=== PATIENT | female | born 1960 | race African-American/Black ===

== ENCOUNTER 2019-02-19 16:20 | Emergency (ER) | payer MEDICARE, MEDICAID ==
[~2019-02-19] VITALS: Ht 154.9 cm; Wt 54.0 kg
[2019-02-19 16:32] VITALS: BP 137/81
[2019-02-19] MEDS ORDERED: LISI-186 PO (16:35)
[2019-02-19] MEDS ORDERED: FAMOTIDINE 20MG TABLET PO ONE (17:15)
[2019-02-19] MEDS ORDERED: DIPHENHYDRAMINE 50MG/ML VIAL IM ONE (17:15)
[2019-02-19] MEDS ORDERED: PREDNISONE 20MG TABLET PO ONE (17:15)
== END 2019-02-19 18:28 | disposition home or self-care (01) ==
LOC: ER 16:20
DX: T78.40XA Allergy, unspecified, initial encounter (principal); I10 Essential (primary) hypertension; J45.909 Unspecified asthma, uncomplicated; Z88.6 Allergy status to analgesic agent; Z88.0 Allergy status to penicillin; Z98.890 Other specified postprocedural states; Z96.652 Presence of left artificial knee joint; X58.XXXA Exposure to other specified factors, initial encounter
CPT/HCPCS: 96372; 99283; J1200; J7512

== ENCOUNTER 2019-03-03 02:51 | Emergency (ER) | payer MEDICARE, MEDICAID ==
[~2019-03-03] VITALS: Ht 154.9 cm; Wt 56.0 kg
[~2019-03-03 02:51] MED LIST: LISI-186 PO
[2019-03-03] MEDS ORDERED: FAMOTIDINE 20MG TABLET PO ONE (04:00)
[2019-03-03] MEDS ORDERED: DEXAMETHASONE 10 MG/ML VIAL PO ONE (04:00)
[2019-03-03] MEDS ORDERED: DIPHENHYDRAMINE 25MG CAPSULE PO ONE (04:00)
[2019-03-03] MEDS ORDERED: DEXAMETHASONE 4MG TABLET PO SCH (05:00)
[2019-03-03 05:30] VITALS: BP 129/61
== END 2019-03-03 05:00 | disposition home or self-care (01) ==
LOC: ER 03:47
DX: R21 Rash and other nonspecific skin eruption (principal); I10 Essential (primary) hypertension; J45.909 Unspecified asthma, uncomplicated; F12.10 Cannabis abuse, uncomplicated; Z96.659 Presence of unspecified artificial knee joint; Z88.0 Allergy status to penicillin; Z88.6 Allergy status to analgesic agent; Z98.890 Other specified postprocedural states
CPT/HCPCS: 99283; J8540; Q0163

== ENCOUNTER 2019-04-21 03:48 | Inpatient (IN) | payer MEDICARE, MEDICAID ==
[~2019-04-21] VITALS: Ht 154.9 cm; Wt 61.2 kg
[2019-04-21 05:43] LABS: CHLORIDE 107 mEq/L (98-107)
[2019-04-21 05:44] LABS: HEMATOCRIT. 43.9 % (36.0-48.0); HEMOGLOBIN. 15.3 g/dL (12.0-16.0); MEAN CORPUSCULAR HEMOGLOBIN 35.4 pg (28.0-32.0); MEAN CORPUSCULAR VOLUME 101.8 fL (81.0-99.0); MEAN PLATELET VOLUME 8.6 fl (7.4-10.4); PLATELET 175 x1000/uL (130-400); RED BLOOD CELL COUNT 4.31 mill/uL (4.2-5.4); RED CELL DISTRIBUTION WIDTH 13.6 % (11.6-14.6)
[2019-04-21] MEDS ORDERED: VISCOUS LIDOCAINE 2% 15 ML UDC MM STA (06:51)
[2019-04-21] MEDS ORDERED: MAGNESIUM/ALUMINUM HYDROXIDE/SIMETHICONE 30ML UDC PO ONE (07:00)
[2019-04-21 08:16] LABS: *AMPHETAMINES SCREEN URINE NEGATIVE (NEGATIVE); *BARBITURATES SCREEN URINE NEGATIVE (NEGATIVE); *BENZODIAZEPINES SCREEN URINE NEGATIVE (NEGATIVE); *COCAINE SCREEN URINE NEGATIVE (NEGATIVE)
[2019-04-21 08:17] LABS: CANNABINOID URINE SCREEN PRESUMTIVE POSITIVE (NEGATIVE); METHADONE URINE SCREEN NEGATIVE (NEGATIVE); OPIATES URINE SCREEN NEGATIVE (NEGATIVE); PHENCYCLIDINE URINE SCREEN NEGATIVE (NEGATIVE)
[2019-04-21 09:06] LABS: PLATELET ESTIMATE NORMAL
[2019-04-21] MEDS ORDERED: ONDANSETRON HCL 4MG/2ML INJ IV ONE (09:15)
[2019-04-21] MEDS ORDERED: OXYCODONE HCL/ACETAMINOPHEN 5/325MG TABLET PO ONE (09:15)
[2019-04-21] MEDS ORDERED: DIPHENHYDRAMINE 50MG/ML VIAL IV ONE (09:15)
[2019-04-21 12:00] VITALS: BP 148/84
[2019-04-21 12:15] VITALS: BP 148/84
[2019-04-21] MEDS ORDERED: MAGNESIUM/ALUMINUM HYDROXIDE/SIMETHICONE 30ML UDC PO PRN (12:30)
[2019-04-21] MEDS ORDERED: CLONIDINE 0.1MG TABLET PO PRN (12:30)
[2019-04-21] MEDS ORDERED: ACETAMINOPHEN 325MG TABLET PO PRN (12:30)
[2019-04-21] MEDS ORDERED: HYDRALAZINE 20MG/ML VIAL IV PRN (12:30)
[2019-04-21] MEDS ORDERED: GUAIFENESIN 200MG/10ML SUGAR FREE UDC PO PRN (12:30)
[2019-04-21] MEDS ORDERED: ONDANSETRON HCL 4MG/2ML INJ IV PRN (12:30)
[2019-04-21] MEDS ORDERED: LISI40TA4 PO (12:37)
[2019-04-21] MEDS ORDERED: GABA-531 MT (12:38)
[2019-04-21] MEDS ORDERED: HYDROMORPHONE HCL/PF 2MG/ML CPJ IV PRN (12:45)
[2019-04-21] MEDS ORDERED: ALPR0.5T PO (12:49)
[2019-04-21] MEDS ORDERED: ELUX100T MT (12:49)
[2019-04-21] MEDS ORDERED: B50 GT (12:49)
[2019-04-21] MEDS ORDERED: ESCI5TAB10 MT (12:49)
[2019-04-21] MEDS ORDERED: OXYC-105 PO (12:53)
[2019-04-21] MEDS ORDERED: ALBU90AE IH (12:53)
[2019-04-21] MEDS ORDERED: ALBU4TAB6 PO (12:53)
[2019-04-21] MEDS ORDERED: FLUT12AE7 IH (12:53)
[2019-04-21] MEDS: PANTOPRAZOLE 40MG DR TABLET PO SCH ×2 (14:54→21:26)
[2019-04-21] MEDS: ENOXAPARIN 40MG/0.4ML SYR SUBCUT SCH (14:54)
[2019-04-21] MEDS: SODIUM CHLORIDE 0.9% INJ 3ML FLUSH IVF SCH ×2 (14:55→21:27)
[2019-04-21] MEDS: DIPHENHYDRAMINE 50MG/ML VIAL IV PRN ×2 (14:59→20:24)
[2019-04-21 16:00] VITALS: BP 119/77
[2019-04-21 20:00] VITALS: BP 149/93
[2019-04-21] MEDS: HYDROMORPHONE HCL/PF 2MG/ML CPJ IV PRN (20:25)
[2019-04-21] MEDS: GABAPENTIN 300MG CAPSULE PO SCH (21:26)
[2019-04-21] MEDS: SUCRALFATE 1 G/10 ML UDC PO SCH (21:27)
[2019-04-21] MEDS: LISINOPRIL 20MG TABLET PO SCH (21:27)
[2019-04-21] MEDS: VIBERZI 100 MG PO SCH (21:56)
[2019-04-22] VITALS: BP 115/70
[2019-04-22] MEDS: HYDROMORPHONE HCL/PF 2MG/ML CPJ IV PRN ×4 (02:46→22:14)
[2019-04-22] MEDS: DIPHENHYDRAMINE 50MG/ML VIAL IV PRN ×4 (02:46→22:13)
[2019-04-22 04:00] VITALS: BP 123/65
[2019-04-22] MEDS: SUCRALFATE 1 G/10 ML UDC PO SCH ×4 (06:13→20:07)
[2019-04-22] MEDS: PANTOPRAZOLE 40MG DR TABLET PO SCH ×2 (06:13→20:07)
[2019-04-22] MEDS: SODIUM CHLORIDE 0.9% INJ 3ML FLUSH IVF SCH ×3 (06:13→22:14)
[2019-04-22 07:57] VITALS: BP 117/81
[2019-04-22] MEDS ORDERED: LISINOPRIL 5MG TABLET PO SCH (09:00)
[2019-04-22] MEDS ORDERED: ASPIRIN 81MG EC TABLET PO SCH (09:00)
[2019-04-22] MEDS: BUDESONIDE 0.5MG/2ML NEB HHN SCH (09:00)
[2019-04-22] MEDS: VIBERZI 100 MG PO SCH ×2 (09:16→16:13)
[2019-04-22] MEDS: LISINOPRIL 20MG TABLET PO SCH ×2 (09:16→20:07)
[2019-04-22] MEDS: ENOXAPARIN 40MG/0.4ML SYR SUBCUT SCH (09:16)
[2019-04-22] MEDS: GABAPENTIN 300MG CAPSULE PO SCH ×2 (09:16→20:07)
[2019-04-22] MEDS ORDERED: REGADENOSON 0.4 MG/5 ML IV ONE (09:45)
[2019-04-22] MEDS ORDERED: ERGO400C PO (10:15)
[2019-04-22 11:47] VITALS: BP 137/72
[2019-04-22] MEDS ORDERED: ERGOCALCIFEROL 50000UNITS CAPSULE PO SCH (14:15)
[2019-04-22] MEDS ORDERED: CHOL400C8 MT (15:31)
[2019-04-22 16:00] VITALS: BP 125/68
[2019-04-22] MEDS: CHOLECALCIFEROL (VIT D3) 400 UNIT TABLET PO SCH (16:13)
[2019-04-22 20:00] VITALS: BP 158/88
[2019-04-22] MEDS: ALPRAZOLAM 0.5 MG TABLET PO PRN (20:17)
[2019-04-23] VITALS: BP_SYST 118; BP_SYST 127; BP_DIAS 65; BP_DIAS 69
[2019-04-23 04:00] VITALS: BP 114/77
[2019-04-23] MEDS: HYDROMORPHONE HCL/PF 2MG/ML CPJ IV PRN ×3 (05:13→18:23)
[2019-04-23] MEDS: SODIUM CHLORIDE 0.9% INJ 3ML FLUSH IVF SCH ×3 (05:13→21:51)
[2019-04-23 06:10] LABS: HEMATOCRIT. 39.5 % (36.0-48.0); HEMOGLOBIN. 13.7 g/dL (12.0-16.0); MEAN CORPUSCULAR HEMOGLOBIN 35.2 pg (28.0-32.0); MEAN PLATELET VOLUME 8.8 fl (7.4-10.4); PLATELET 176 x1000/uL (130-400); RED BLOOD CELL COUNT 3.88 mill/uL (4.2-5.4); RED CELL DISTRIBUTION WIDTH 13.5 % (11.6-14.6)
[2019-04-23] MEDS: SUCRALFATE 1 G/10 ML UDC PO SCH ×4 (06:45→20:59)
[2019-04-23] MEDS: PANTOPRAZOLE 40MG DR TABLET PO SCH (06:45)
[2019-04-23 06:55] LABS: CHLORIDE 108 mEq/L (98-107)
[2019-04-23 07:10] LABS: LDL CHOLESTEROL 67 mg/dL (5-100)
[2019-04-23 07:21] LABS: HDL CHOLESTEROL 147 mg/dL (40-59)
[2019-04-23 08:00] VITALS: BP 139/74
[2019-04-23] MEDS ORDERED: REGADENOSON 0.4 MG/5 ML IV ONE (09:18)
[2019-04-23] MEDS: GABAPENTIN 300MG CAPSULE PO SCH ×2 (11:13→20:59)
[2019-04-23] MEDS: CHOLECALCIFEROL (VIT D3) 400 UNIT TABLET PO SCH (11:13)
[2019-04-23] MEDS: ENOXAPARIN 40MG/0.4ML SYR SUBCUT SCH (11:13)
[2019-04-23] MEDS: LISINOPRIL 20MG TABLET PO SCH ×2 (11:14→21:51)
[2019-04-23] MEDS: VIBERZI 100 MG PO SCH ×2 (11:14→17:00)
[2019-04-23 12:00] VITALS: BP 137/78
[2019-04-23 12:51] LABS: PLATELET ESTIMATE NORMAL
[2019-04-23] MEDS: ALPRAZOLAM 0.5 MG TABLET PO PRN (15:41)
[2019-04-23] MEDS ORDERED: ESCI20TA36 MT (15:42)
[2019-04-23 16:00] VITALS: BP 134/76
[2019-04-23 20:00] VITALS: BP 126/75
[2019-04-23] MEDS: FAMOTIDINE 20MG TABLET PO SCH (20:59)
[2019-04-24] VITALS: BP 128/72
[2019-04-24] MEDS: BUDESONIDE 0.5MG/2ML NEB HHN SCH ×2 (00:24→16:36)
[2019-04-24] MEDS: HYDROMORPHONE HCL/PF 2MG/ML CPJ IV PRN ×3 (01:27→17:46)
[2019-04-24] MEDS ORDERED: POTASSIUM CHLORIDE 20MEQ TABLET SR PO SCH (01:30)
[2019-04-24] MEDS: ALPRAZOLAM 0.5 MG TABLET PO PRN ×2 (01:36→14:00)
[2019-04-24 04:00] VITALS: BP 122/83
[2019-04-24] MEDS: SODIUM CHLORIDE 0.9% INJ 3ML FLUSH IVF SCH ×2 (06:48→17:50)
[2019-04-24] MEDS: SUCRALFATE 1 G/10 ML UDC PO SCH ×3 (06:48→17:44)
[2019-04-24] MEDS ORDERED: SODIUM CHLORIDE 0.45% 1,000 ML IV SCH (08:00)
[2019-04-24] MEDS: CHOLECALCIFEROL (VIT D3) 400 UNIT TABLET PO SCH (08:08)
[2019-04-24] MEDS: FAMOTIDINE 20MG TABLET PO SCH (08:08)
[2019-04-24] MEDS: GABAPENTIN 300MG CAPSULE PO SCH (08:08)
[2019-04-24] MEDS: VIBERZI 100 MG PO SCH ×2 (08:09→17:44)
[2019-04-24] MEDS: ENOXAPARIN 40MG/0.4ML SYR SUBCUT SCH (08:09)
[2019-04-24] MEDS: LISINOPRIL 20MG TABLET PO SCH (08:09)
[2019-04-24] MEDS ORDERED: MIDAZOLAM HCL 2 MG/2 ML VIAL ONE (09:28)
[2019-04-24] MEDS ORDERED: FENTANYL CITRATE/PF 50MCG/ML 2ML VIAL ONE (09:28)
[2019-04-24] MEDS ORDERED: IODIXANOL 320MG/ML 100 ML BOTTLE IV ONE (09:29)
[2019-04-24] MEDS ORDERED: LIDOCAINE HCL 1% 20ML VIAL (Pyxis) INJ ONE (09:29)
[2019-04-24] MEDS ORDERED: ASPIRIN/SOD BICARB/CITRIC ACID 324MG TAB EFF ONE (09:29)
[2019-04-24] MEDS ORDERED: ONDANSETRON HCL 4MG/2ML INJ IV PRN (10:15)
[2019-04-24] MEDS ORDERED: MORPHINE SULFATE 2 MG/ML CPJ (NOT FOR IM USE) IV PRN (10:15)
[2019-04-24] MEDS ORDERED: ACETAMINOPHEN 325MG TABLET PO PRN (10:15)
[2019-04-24] MEDS ORDERED: SODIUM CHLORIDE 0.45% 1,000 ML IV ONE (10:15)
[2019-04-24] MEDS ORDERED: ATROPINE SULFATE 1MG/10ML SYR IV PRN (10:15)
[2019-04-24] MEDS ORDERED: HEPARIN SODIUM 1,000 UNIT/1ML VIAL IV ONE (14:03)
[2019-04-24] MEDS ORDERED: PHENYLEPHRINE 100MCG/ML 10ML VIAL (CATH LAB) IV ONE (14:03)
[2019-04-24] MEDS ORDERED: NITROGLYCERIN 50MCG/ML 10ML VIAL (CATH LAB) IV ONE (14:03)
[2019-04-24] MEDS ORDERED: NICARDIPINE 100MCG/ML 10ML VIAL (CATH LAB) IV ONE (14:03)
[2019-04-24] MEDS: IPRATROPIUM/ALBUTEROL 0.5-3(2.5)MG/3ML NEB INH PRN ×2 (14:13→16:36)
[2019-04-24 19:47] VITALS: BP 124/78
== END 2019-04-24 20:58 | disposition home or self-care (01) | DRG 287 ==
LOC: ER 03:48 → 5WST 09:09 → EDBEDREQ 09:10 → ENRESERV 11:05
PROVIDERS: ADMIT Internal Medicine; ATTEND Internal Medicine
PROC: 4A023N7 Measurement of Cardiac Sampling and Pressure, Left Heart, Percutaneous Approach (ICD-10-PCS; principal; 2019-04-24)
PROC: B2111ZZ Fluoroscopy of Multiple Coronary Arteries using Low Osmolar Contrast (ICD-10-PCS; 2019-04-24)
PROC: B2151ZZ Fluoroscopy of Left Heart using Low Osmolar Contrast (ICD-10-PCS; 2019-04-24)
DX: R00.1 Bradycardia, unspecified (principal); K21.9 Gastro-esophageal reflux disease without esophagitis; R07.89 Other chest pain; K58.9 Irritable bowel syndrome, unspecified; I10 Essential (primary) hypertension; J44.9 Chronic obstructive pulmonary disease, unspecified; F32.9 Major depressive disorder, single episode, unspecified; R74.0 Nonspecific elevation of levels of transaminase and lactic acid dehydrogenase [LDH]; R10.12 Left upper quadrant pain; Z96.659 Presence of unspecified artificial knee joint; Z87.891 Personal history of nicotine dependence; Z98.891 History of uterine scar from previous surgery; Z88.0 Allergy status to penicillin; Z88.6 Allergy status to analgesic agent; Z88.8 Allergy status to other drugs, medicaments and biological substances; Z79.899 Other long term (current) drug therapy; Z82.49 Family history of ischemic heart disease and other diseases of the circulatory system
CPT/HCPCS: 36415; 71045; 74176; 78452; 78582; 80061; 80305; 83735; 83880; 84443; 84484; 85379; 93005; 93017; 93306; 93458; 93970; 94640; 96374; 96375; 99285; A9500; A9558; C1769; C1893; J1170; J1200; J1644; J1650; J2250; J2370; J2405; J2785; J3010; J3490; J7040; J7620; J7626; Q9967

== ENCOUNTER 2019-05-31 03:36 | Emergency (ER) | payer MEDICARE, MEDICAID ==
[~2019-05-31] VITALS: Ht 154.9 cm; Wt 57.0 kg
[2019-05-31] MEDS ORDERED: FAMOTIDINE 20MG/2ML VIAL IV STA (04:47)
[2019-05-31] MEDS ORDERED: SODIUM CHLORIDE 0.9% 1,000 ML IV ONE (04:47)
[2019-05-31] MEDS ORDERED: MORPHINE SULFATE 4 MG/ML CPJ (NOT FOR IM USE) IV STA (04:47)
[2019-05-31] MEDS ORDERED: METOCLOPRAMIDE HCL 10MG/2ML VIAL IV STA (04:47)
[2019-05-31 05:11] LABS: HEMATOCRIT. 42.2 % (36.0-48.0); HEMOGLOBIN. 14.3 g/dL (12.0-16.0); MEAN CORPUSCULAR HEMOGLOBIN 34.1 pg (28.0-32.0); MEAN CORPUSCULAR VOLUME 100.9 fL (81.0-99.0); MEAN PLATELET VOLUME 8.9 fl (7.4-10.4); PLATELET 174 x1000/uL (130-400); RED BLOOD CELL COUNT 4.18 mill/uL (4.2-5.4); RED CELL DISTRIBUTION WIDTH 13.7 % (11.6-14.6)
[2019-05-31 05:16] LABS: CHLORIDE 106 mEq/L (98-107)
[2019-05-31 06:53] LABS: PLATELET ESTIMATE NORMAL
[2019-05-31 08:30] VITALS: BP 13/80
[2019-05-31 08:52] LABS: CLARITY URINE CLOUDY (CLEAR); COLOR URINE YELLOW (YELLOW); KETONES URINE NEGATIVE (NEGATIVE); LEUKOCYTE ESTERASE URINE 1+ (NEGATIVE); NITRITE URINE NEGATIVE (NEGATIVE); OCCULT BLOOD URINE NEGATIVE (NEGATIVE); PH URINE 5.5 (4.5-8.0); PROTEIN URINE NEGATIVE (NEGATIVE); SPECIFIC GRAVITY URINE 1.021 (1.005-1.030); UROBILINOGEN URINE 0.2 E.U./dL (0.2-1.0)
== END 2019-05-31 08:30 | disposition home or self-care (01) ==
LOC: ER 03:36
DX: R19.7 Diarrhea, unspecified (principal); K58.9 Irritable bowel syndrome, unspecified; I10 Essential (primary) hypertension; J45.909 Unspecified asthma, uncomplicated; Z88.6 Allergy status to analgesic agent; Z88.0 Allergy status to penicillin; Z98.890 Other specified postprocedural states; Z96.653 Presence of artificial knee joint, bilateral
CPT/HCPCS: 36415; 80053; 81003; 83690; 85025; 87086; 96361; 96374; 96375; 99284; J2270; J2765; J3490; J7030

== ENCOUNTER 2019-06-25 14:17 | Emergency (ER) | payer MEDICARE, MEDICAID ==
[~2019-06-25] VITALS: Ht 154.9 cm; Wt 57.0 kg
[2019-06-25] MEDS ORDERED: SODIUM CHLORIDE 0.9% 1,000 ML IV ONE (15:02)
[2019-06-25] MEDS ORDERED: FAMOTIDINE 20MG/2ML VIAL IV STA (15:02)
[2019-06-25 15:45] LABS: BASOPHILS % 0.7 % (0.0-2.0); EOSINOPHILS % 2.1 % (0.0-5.0); HEMATOCRIT. 35.4 % (36.0-48.0); HEMOGLOBIN. 12.3 g/dL (12.0-16.0); LYMPHOCYTES % 28.1 % (20.0-50.0); MEAN CORPUSCULAR HEMOGLOBIN 34.7 pg (28.0-32.0); MEAN CORPUSCULAR VOLUME 100.3 fL (81.0-99.0); MEAN PLATELET VOLUME 9.1 fl (7.4-10.4); MONOCYTES % 14.4 % (2.0-8.0); NEUTROPHILS % 54.7 % (40.0-76.0); PLATELET 127 x1000/uL (130-400); RED BLOOD CELL COUNT 3.53 mill/uL (4.2-5.4); RED CELL DISTRIBUTION WIDTH 13.7 % (11.6-14.6)
[2019-06-25 15:49] LABS: CHLORIDE 109 mEq/L (98-107)
[2019-06-25 16:15] LABS: CLARITY URINE CLEAR (CLEAR); COLOR URINE YELLOW (YELLOW); KETONES URINE NEGATIVE (NEGATIVE); LEUKOCYTE ESTERASE URINE TRACE (NEGATIVE); NITRITE URINE NEGATIVE (NEGATIVE); OCCULT BLOOD URINE NEGATIVE (NEGATIVE); PROTEIN URINE NEGATIVE (NEGATIVE); SPECIFIC GRAVITY URINE 1.004 (1.005-1.030); UROBILINOGEN URINE 0.2 E.U./dL (0.2-1.0)
[2019-06-25] MEDS ORDERED: TRAMADOL 50MG TABLET PO ONE (16:15)
[2019-06-25] MEDS ORDERED: ONDANSETRON HCL 4MG/2ML INJ IV STA (17:03)
[2019-06-25] MEDS ORDERED: MORPHINE SULFATE 4 MG/ML CPJ (NOT FOR IM USE) IV STA (17:03)
[2019-06-25 17:45] VITALS: BP 158/89
== END 2019-06-25 17:50 | disposition home or self-care (01) ==
LOC: ER 14:17
DX: N39.0 Urinary tract infection, site not specified (principal); R19.7 Diarrhea, unspecified
CPT/HCPCS: 36415; 80053; 81003; 83605; 83690; 85025; 85610; 96361; 96374; 96375; 99283; J2270; J2405; J3490; J7030

== ENCOUNTER 2019-12-19 10:05 | Inpatient (IN) | payer MEDICARE, MEDICAID ==
[~2019-12-19] VITALS: Ht 154.9 cm; Wt 54.4 kg
[2019-12-19] MEDS ORDERED: MORPHINE SULFATE 4 MG/ML CPJ (NOT FOR IM USE) IV STA (11:09)
[2019-12-19] MEDS ORDERED: SODIUM CHLORIDE 0.9% 1,000 ML IV ONE (11:09)
[2019-12-19] MEDS ORDERED: ONDANSETRON HCL 4MG/2ML INJ IV STA (11:09)
[2019-12-19] MEDS ORDERED: DIPHENHYDRAMINE 50MG/ML VIAL IV ONE ×2 (11:15→16:15)
[2019-12-19 11:48] LABS: BASOPHILS % 0.9 % (0.0-2.0); EOSINOPHILS % 2.4 % (0.0-5.0); HEMATOCRIT. 45.2 % (36.0-48.0); HEMOGLOBIN. 15.5 g/dL (12.0-16.0); LYMPHOCYTES % 46.3 % (20.0-50.0); MEAN CORPUSCULAR HEMOGLOBIN 34.9 pg (28.0-32.0); MEAN CORPUSCULAR VOLUME 101.8 fL (81.0-99.0); MEAN PLATELET VOLUME 9.5 fl (7.4-10.4); NEUTROPHILS % 39.4 % (40.0-76.0); PLATELET 170 x1000/uL (130-400); RED BLOOD CELL COUNT 4.44 mill/uL (4.2-5.4); RED CELL DISTRIBUTION WIDTH 15.5 % (11.6-14.6)
[2019-12-19 11:52] LABS: CHLORIDE 105 mEq/L (98-107)
[2019-12-19 12:00] LABS: CLARITY URINE CLOUDY (CLEAR); COLOR URINE YELLOW (YELLOW); KETONES URINE NEGATIVE (NEGATIVE); LEUKOCYTE ESTERASE URINE NEGATIVE (NEGATIVE); NITRITE URINE NEGATIVE (NEGATIVE); OCCULT BLOOD URINE NEGATIVE (NEGATIVE); PROTEIN URINE TRACE (NEGATIVE); SPECIFIC GRAVITY URINE 1.013 (1.005-1.030); UROBILINOGEN URINE 0.2 E.U./dL (0.2-1.0)
[2019-12-19] MEDS ORDERED: ONDANSETRON HCL 4MG/2ML INJ IV ONE (13:30)
[2019-12-19] MEDS ORDERED: METRONIDAZOLE 500 MG PREMIX 100 ML IV ONE (14:15)
[2019-12-19] MEDS ORDERED: LEVOFLOXACIN 750MG PREMIX 150 ML IV ONE (14:15)
[2019-12-19] MEDS ORDERED: IOHEXOL-300 100 ML BOTTLE ONE (14:49)
[2019-12-19] MEDS ORDERED: MORPHINE SULFATE 4 MG/ML CPJ (NOT FOR IM USE) IV ONE (15:30)
[2019-12-19] MEDS ORDERED: MAGNESIUM 1 G PREMIX 100 ML IV ONE (16:30)
[2019-12-19 21:30] VITALS: BP_SYST 122; BP_SYST 128; BP_DIAS 74; BP_DIAS 79
[2019-12-19] MEDS ORDERED: MORPHINE SULFATE 2 MG/ML CPJ (NOT FOR IM USE) IV PRN (21:53)
[2019-12-19] MEDS ORDERED: GABAPENTIN 100MG CAPSULE PO PRN (22:15)
[2019-12-19] MEDS: DIPHENHYDRAMINE 50MG/ML VIAL IV PRN (22:47)
[2019-12-19] MEDS: METRONIDAZOLE 500 MG PREMIX 100 ML IV SCH (23:23)
[2019-12-19] MEDS: ALPRAZOLAM 0.25 MG TABLET PO PRN (23:25)
[2019-12-19] MEDS: SODIUM CHLORIDE 0.9% 1,000 ML IV SCH (23:26)
[2019-12-20] MEDS: DIPHENHYDRAMINE 50MG/ML VIAL IV PRN ×4 (02:12→20:53)
[2019-12-20] MEDS ORDERED: ALPR0.25 PO (02:59)
[2019-12-20] MEDS ORDERED: ESCI5SOL2 PO (02:59)
[2019-12-20] MEDS ORDERED: GABA-529 PO (02:59)
[2019-12-20] MEDS: ONDANSETRON HCL 4MG/2ML INJ IV PRN ×2 (03:14→20:54)
[2019-12-20] MEDS: METRONIDAZOLE 500 MG PREMIX 100 ML IV SCH ×3 (05:20→20:54)
[2019-12-20] MEDS ORDERED: DICY20TA11 PO (06:20)
[2019-12-20] MEDS ORDERED: ERGO500013 PO (06:22)
[2019-12-20] MEDS ORDERED: ONDA4TAB5 PO (06:24)
[2019-12-20] MEDS ORDERED: LOSA50TA41 MT (06:34)
[2019-12-20] MEDS ORDERED: CHOL40002 PO (06:34)
[2019-12-20] MEDS ORDERED: LOSA50TA41 PO (06:34)
[2019-12-20] MEDS ORDERED: ALPR-340 PO (06:34)
[2019-12-20] MEDS ORDERED: CLON0.1T PO (06:34)
[2019-12-20] MEDS ORDERED: METR-167 PO (06:34)
[2019-12-20 06:56] LABS: HEMATOCRIT. 38.4 % (36.0-48.0); HEMOGLOBIN. 12.9 g/dL (12.0-16.0); MEAN CORPUSCULAR HEMOGLOBIN 34.7 pg (28.0-32.0); MEAN CORPUSCULAR VOLUME 103.3 fL (81.0-99.0); MEAN PLATELET VOLUME 10.1 fl (7.4-10.4); PLATELET 121 x1000/uL (130-400); RED BLOOD CELL COUNT 3.72 mill/uL (4.2-5.4); RED CELL DISTRIBUTION WIDTH 14.9 % (11.6-14.6)
[2019-12-20 08:13] LABS: CHLORIDE 111 mEq/L (98-107)
[2019-12-20 08:16] LABS: LDL CHOLESTEROL 70 mg/dL (5-100)
[2019-12-20 08:17] LABS: CREATINE KINASE 75 IU/L (26-192)
[2019-12-20 08:19] LABS: HDL CHOLESTEROL 104 mg/dL (40-59)
[2019-12-20 08:20] LABS: CREATINE KINASE MB FRACTION 1.6 ng/mL (0.5-3.6)
[2019-12-20] MEDS: HYDROMORPHONE HCL/PF 2MG/ML CPJ IV PRN ×2 (10:04→17:41)
[2019-12-20 11:09] LABS: NUCLEATED RED BLOOD CELLS 1 /100 WBC; PLATELET ESTIMATE NORMAL
[2019-12-20] MEDS: LEVOFLOXACIN 750MG PREMIX 150 ML IV SCH (11:59)
[2019-12-20] MEDS ORDERED: LEVOFLOXACIN 750MG PREMIX 150 ML IV SCH (14:00)
[2019-12-20] MEDS: SODIUM CHLORIDE 0.9% 1,000 ML IV SCH ×2 (15:14→21:06)
[2019-12-20 16:00] VITALS: BP 134/75
[2019-12-20] MEDS ORDERED: CLONIDINE 0.1MG TABLET PO PRN (17:00)
[2019-12-20] MEDS: LOSARTAN POTASSIUM 50 MG TABLET PO SCH (18:15)
[2019-12-20] MEDS: DICYCLOMINE HCL 20MG TABLET PO SCH ×2 (18:15→20:53)
[2019-12-20 20:00] VITALS: BP 122/55
[2019-12-20] MEDS: ALPRAZOLAM 0.25 MG TABLET PO PRN (20:53)
[2019-12-21] VITALS: BP 147/87
[2019-12-21] MEDS: DIPHENHYDRAMINE 50MG/ML VIAL IV PRN ×3 (00:42→15:39)
[2019-12-21] MEDS: HYDROMORPHONE HCL/PF 2MG/ML CPJ IV PRN ×4 (00:43→22:04)
[2019-12-21] MEDS: ONDANSETRON HCL 4MG/2ML INJ IV PRN ×4 (00:51→22:04)
[2019-12-21 04:00] VITALS: BP 138/86
[2019-12-21] MEDS: METRONIDAZOLE 500 MG PREMIX 100 ML IV SCH ×3 (06:05→22:03)
[2019-12-21 07:21] LABS: CHLORIDE 114 mEq/L (98-107)
[2019-12-21 07:22] LABS: BASOPHILS % 0.8 % (0.0-2.0); EOSINOPHILS % 4.1 % (0.0-5.0); HEMATOCRIT. 37.5 % (36.0-48.0); HEMOGLOBIN. 12.6 g/dL (12.0-16.0); LYMPHOCYTES % 45.7 % (20.0-50.0); MEAN CORPUSCULAR HEMOGLOBIN 35.2 pg (28.0-32.0); MEAN CORPUSCULAR VOLUME 104.4 fL (81.0-99.0); MONOCYTES % 14.3 % (2.0-8.0); NEUTROPHILS % 35.1 % (40.0-76.0); RED BLOOD CELL COUNT 3.59 mill/uL (4.2-5.4); RED CELL DISTRIBUTION WIDTH 14.5 % (11.6-14.6)
[2019-12-21 08:00] VITALS: BP 139/90
[2019-12-21] MEDS: LOSARTAN POTASSIUM 50 MG TABLET PO SCH (08:23)
[2019-12-21] MEDS: DICYCLOMINE HCL 20MG TABLET PO SCH ×4 (08:23→22:03)
[2019-12-21] MEDS ORDERED: ALPRAZOLAM 0.25 MG TABLET PO SCH (09:00)
[2019-12-21] MEDS: LEVOFLOXACIN 750MG PREMIX 150 ML IV SCH (10:52)
[2019-12-21 12:00] VITALS: BP 148/76
[2019-12-21] MEDS ORDERED: SODIUM BICARBONATE 4% (2.4MEQ) 5ML VIAL IV ONE (13:07)
[2019-12-21] MEDS ORDERED: LIDOCAINE HCL 1% 20ML VIAL (Pyxis) INJ ONE (13:07)
[2019-12-21 13:33] LABS: PLATELET 153 x1000/uL (130-400)
[2019-12-21 15:57] VITALS: BP 140/86
[2019-12-21 20:00] VITALS: BP 143/90
[2019-12-22] VITALS: BP 141/91
[2019-12-22] MEDS: SODIUM CHLORIDE 0.9% 1,000 ML IV SCH (00:35)
[2019-12-22 04:00] VITALS: BP 149/80
[2019-12-22] MEDS: HYDROMORPHONE HCL/PF 2MG/ML CPJ IV PRN ×4 (04:24→23:29)
[2019-12-22] MEDS: METRONIDAZOLE 500 MG PREMIX 100 ML IV SCH ×3 (05:30→21:00)
[2019-12-22] MEDS: CLONIDINE 0.1MG TABLET PO PRN (05:54)
[2019-12-22 08:00] VITALS: BP 114/71
[2019-12-22] MEDS: DICYCLOMINE HCL 20MG TABLET PO SCH ×4 (08:55→20:42)
[2019-12-22] MEDS: LOSARTAN POTASSIUM 50 MG TABLET PO SCH (08:55)
[2019-12-22] MEDS: LEVOFLOXACIN 750MG PREMIX 150 ML IV SCH (10:22)
[2019-12-22] MEDS: ONDANSETRON HCL 4MG/2ML INJ IV PRN ×2 (10:44→16:58)
[2019-12-22] MEDS: DIPHENHYDRAMINE 50MG/ML VIAL IV PRN ×3 (10:44→23:50)
[2019-12-22 12:00] VITALS: BP 118/91
[2019-12-22] MEDS ORDERED: GABA-531 PO (15:26)
[2019-12-22] MEDS ORDERED: FLUT1DIS6 INH (15:33)
[2019-12-22 16:00] VITALS: BP 139/76
[2019-12-22 20:00] VITALS: BP 158/88
[2019-12-22] MEDS: ALPRAZOLAM 0.25 MG TABLET PO PRN (20:42)
[2019-12-23] VITALS: BP 151/95
[2019-12-23] MEDS: HYDROMORPHONE HCL/PF 2MG/ML CPJ IV PRN ×3 (00:49→20:34)
[2019-12-23 04:00] VITALS: BP 148/93
[2019-12-23] MEDS: DIPHENHYDRAMINE 50MG/ML VIAL IV PRN ×3 (06:07→18:19)
[2019-12-23] MEDS: METRONIDAZOLE 500 MG PREMIX 100 ML IV SCH ×3 (06:08→22:16)
[2019-12-23 06:25] LABS: HEMATOCRIT. 37.4 % (36.0-48.0); HEMOGLOBIN. 12.5 g/dL (12.0-16.0); MEAN CORPUSCULAR HEMOGLOBIN 34.6 pg (28.0-32.0); MEAN CORPUSCULAR VOLUME 103.5 fL (81.0-99.0); MEAN PLATELET VOLUME 9.8 fl (7.4-10.4); PLATELET 98 x1000/uL (130-400); RED BLOOD CELL COUNT 3.62 mill/uL (4.2-5.4); RED CELL DISTRIBUTION WIDTH 14.5 % (11.6-14.6)
[2019-12-23 06:33] LABS: CHLORIDE 110 mEq/L (98-107)
[2019-12-23 08:00] VITALS: BP 138/88
[2019-12-23] MEDS ORDERED: POTASSIUM CHLORIDE 20MEQ TABLET SR PO NR (08:15)
[2019-12-23] MEDS: DICYCLOMINE HCL 20MG TABLET PO SCH ×4 (08:47→20:33)
[2019-12-23] MEDS: GABAPENTIN 300MG CAPSULE PO SCH (08:48)
[2019-12-23] MEDS: LOSARTAN POTASSIUM 50 MG TABLET PO SCH (08:49)
[2019-12-23] MEDS: SODIUM CHLORIDE 0.9% 1,000 ML IV SCH (08:50)
[2019-12-23] MEDS ORDERED: ERGOCALCIFEROL 50000UNITS CAPSULE PO SCH (09:00)
[2019-12-23] MEDS: LEVOFLOXACIN 750MG PREMIX 150 ML IV SCH (10:15)
[2019-12-23 12:00] VITALS: BP 171/103
[2019-12-23] MEDS: CLONIDINE 0.1MG TABLET PO PRN (13:06)
[2019-12-23 13:59] LABS: PLATELET ESTIMATE DECREASED
[2019-12-23] MEDS ORDERED: LORAZEPAM 2MG/ML CPJ IV PRN (14:15)
[2019-12-23] MEDS: IPRATROPIUM/ALBUTEROL 0.5-3(2.5)MG/3ML NEB HHN PRN (14:22)
[2019-12-23 16:00] VITALS: BP 126/93
[2019-12-23 20:00] VITALS: BP 128/85
[2019-12-23 20:37] LABS: TOTAL IRON BINDING CAPACITY 186 ug/dL (250-450)
[2019-12-23 20:55] LABS: INR 1.1; PROTHROMBIN TIME 11.6 sec (9.6-11.0)
[2019-12-23 21:09] LABS: FERRITIN 288 ng/mL (10-291)
[2019-12-23 21:14] LABS: FOLIC ACID (FOLATE) SERUM >20 ng/mL ng/mL (>5.38)
[2019-12-23 21:21] LABS: HEPATITIS B SURFACE ANTIGEN NEGATIVE
[2019-12-23 21:25] LABS: VITAMIN B12 SERUM 1144 pg/mL (211-911)
[2019-12-23 21:50] LABS: HEPATITIS A AB IGM NEGATIVE (NEGATIVE)
[2019-12-24] VITALS: BP 126/86
[2019-12-24] MEDS: HYDROMORPHONE HCL/PF 2MG/ML CPJ IV PRN ×2 (03:14→09:19)
[2019-12-24 04:00] VITALS: BP 131/62
[2019-12-24] MEDS: METRONIDAZOLE 500 MG PREMIX 100 ML IV SCH ×2 (05:38→14:27)
[2019-12-24] MEDS: IPRATROPIUM/ALBUTEROL 0.5-3(2.5)MG/3ML NEB HHN PRN (05:57)
[2019-12-24 07:14] LABS: CHLORIDE 112 mEq/L (98-107)
[2019-12-24 07:21] LABS: HEMATOCRIT. 33.7 % (36.0-48.0); HEMOGLOBIN. 11.6 g/dL (12.0-16.0); MEAN CORPUSCULAR HEMOGLOBIN 35.4 pg (28.0-32.0); MEAN CORPUSCULAR VOLUME 103.2 fL (81.0-99.0); MEAN PLATELET VOLUME 9.9 fl (7.4-10.4); PLATELET 97 x1000/uL (130-400); RED BLOOD CELL COUNT 3.27 mill/uL (4.2-5.4); RED CELL DISTRIBUTION WIDTH 14.8 % (11.6-14.6)
[2019-12-24 08:00] VITALS: BP 125/72
[2019-12-24] MEDS: GABAPENTIN 300MG CAPSULE PO SCH (08:18)
[2019-12-24] MEDS: LOSARTAN POTASSIUM 50 MG TABLET PO SCH (08:18)
[2019-12-24] MEDS: DICYCLOMINE HCL 20MG TABLET PO SCH ×3 (08:18→17:00)
[2019-12-24] MEDS: DIPHENHYDRAMINE 50MG/ML VIAL IV PRN (08:27)
[2019-12-24] MEDS: LEVOFLOXACIN 750MG PREMIX 150 ML IV SCH (11:09)
[2019-12-24 12:00] VITALS: BP 120/69
[2019-12-24] MEDS ORDERED: LEVO750T46 MT (14:35)
[2019-12-24] MEDS ORDERED: METR-167 MT (14:35)
[2019-12-24] MEDS ORDERED: LOPE2CAP MT (15:01)
[2019-12-24] MEDS: CLONIDINE 0.1MG TABLET PO PRN (15:23)
[2019-12-24 15:28] VITALS: BP 162/97
[2019-12-24 16:00] VITALS: BP 162/85
[2019-12-24 20:10] LABS: PLATELET ESTIMATE DECREASED
[2019-12-25 09:09] LABS: SACCHAROMYCES CEREVISIAE IGG <20.0 Units (0.0-24.9); SACCHAROMYCES CEREVISIAE IGM <20.0 Units (0.0-24.9)
[2019-12-25 15:09] LABS: ATYPICAL pANCA <1:20 titer (Neg:<1:20)
[2019-12-26 06:10] LABS: HIV SCREEN 4G Non Reactive (Non Reactive)
== END 2019-12-24 18:25 | disposition home or self-care (01) | DRG 690 ==
LOC: ER 10:05 → 6EST 15:31 → EDBEDREQTM 15:44 → ENRESERV 19:58 → 6EST 12-24 11:21
PROVIDERS: ADMIT Internal Medicine; ATTEND Internal Medicine
PROC: 02HV33Z Insertion of Infusion Device into Superior Vena Cava, Percutaneous Approach (ICD-10-PCS; principal; 2019-12-21)
PROC: B518ZZA Fluoroscopy of Superior Vena Cava, Guidance (ICD-10-PCS; 2019-12-21)
PROC: B548ZZA Ultrasonography of Superior Vena Cava, Guidance (ICD-10-PCS; 2019-12-21)
DX: N39.0 Urinary tract infection, site not specified (principal); D61.818 Other pancytopenia; K52.9 Noninfective gastroenteritis and colitis, unspecified; I10 Essential (primary) hypertension; D75.89 Other specified diseases of blood and blood-forming organs; E88.09 Other disorders of plasma-protein metabolism, not elsewhere classified; J44.9 Chronic obstructive pulmonary disease, unspecified; F32.9 Major depressive disorder, single episode, unspecified; K74.60 Unspecified cirrhosis of liver; F10.21 Alcohol dependence, in remission; F11.90 Opioid use, unspecified, uncomplicated; E87.6 Hypokalemia; Z88.0 Allergy status to penicillin; Z76.5 Malingerer [conscious simulation]; Z88.6 Allergy status to analgesic agent; Z87.891 Personal history of nicotine dependence; Z88.8 Allergy status to other drugs, medicaments and biological substances
CPT/HCPCS: 36415; 36573; 71045; 74177; 76700; 76937; 80048; 80053; 80061; 81003; 82270; 82550; 82553; 82607; 82728; 82746; 83540; 83550; 83735; 83880; 84443; 84484; 85025; 86256; 86671; 86705; 86709; 86803; 87015; 87045; 87340; 87389; 87427; 87449; 87493; 89055; 93005; 93970; 94640; 99285; C1725; C1769; J1170; J1200; J1956; J2060; J2270; J2405; J3475; J3490; J7030; J7620; Q9967

== ENCOUNTER 2021-08-09 05:48 | Inpatient (IN) | payer MEDICARE, MEDICAID ==
[~2021-08-09] VITALS: Ht 152.4 cm; Wt 60.8 kg
[~2021-08-09 05:48] MED LIST changes: +ALPR0.25 PO; +CHOL40002 PO; +DICY20TA11 PO; +ERGO1250 PO; +ESCI5SOL2 PO; +FLUT1DIS6 INH; +GABA-532 PO; +LEVO750T46 MT; -LISI-186 PO; +LOPE2CAP MT; +LOSA50TA41 PO; +METR-167 MT; +ONDA4TAB5 PO
[2021-08-09] MEDS ORDERED: ONDANSETRON HCL 4MG/2ML INJ IV ONE (06:45)
[2021-08-09] MEDS ORDERED: MORPHINE SULFATE 4 MG/ML CPJ (NOT FOR IM USE) IV ONE ×2 (06:45→08:30)
[2021-08-09 07:31] LABS: BASOPHILS % 0.8 % (0.0-2.0); EOSINOPHILS % 0.5 % (0.0-5.0); HEMATOCRIT. 36.5 % (36.0-48.0); HEMOGLOBIN. 12.8 g/dL (12.0-16.0); LYMPHOCYTES % 31.8 % (20.0-50.0); MEAN CORPUSCULAR HEMOGLOBIN 34.9 pg (28.0-32.0); MEAN CORPUSCULAR VOLUME 99.3 fL (81.0-99.0); MEAN PLATELET VOLUME 8.6 fl (7.4-10.4); MONOCYTES % 10.2 % (2.0-8.0); NEUTROPHILS % 56.7 % (40.0-76.0); PLATELET 178 x1000/uL (130-400); RED BLOOD CELL COUNT 3.68 mill/uL (4.2-5.4); RED CELL DISTRIBUTION WIDTH 14.6 % (11.6-14.6)
[2021-08-09 07:37] LABS: CHLORIDE 106 mEq/L (98-107)
[2021-08-09 07:56] LABS: PROTHROMBIN TIME 10.8 sec (9.6-11.0)
[2021-08-09] MEDS ORDERED: DIPHENHYDRAMINE 50MG/ML VIAL IV ONE (08:00)
[2021-08-09 08:35] LABS: CLARITY URINE CLOUDY (CLEAR); COLOR URINE DARK YELLOW (YELLOW); KETONES URINE 1+ (NEGATIVE); LEUKOCYTE ESTERASE URINE TRACE (NEGATIVE); NITRITE URINE NEGATIVE (NEGATIVE); OCCULT BLOOD URINE NEGATIVE (NEGATIVE); PH URINE 5.5 (4.5-8.0); PROTEIN URINE 1+ (NEGATIVE); SPECIFIC GRAVITY URINE 1.024 (1.005-1.030)
[2021-08-09] MEDS ORDERED: SODIUM CHLORIDE 0.9% 500 ML IV ONE (09:15)
[2021-08-09] MEDS ORDERED: CLONIDINE 0.1MG TABLET PO PRN (12:15)
[2021-08-09] MEDS ORDERED: IPRATROPIUM/ALBUTEROL 0.5-3(2.5)MG/3ML NEB HHN PRN (12:15)
[2021-08-09] MEDS ORDERED: NALOXONE HCL 0.4MG/ML VIAL IV PRN (13:00)
[2021-08-09] MEDS: ONDANSETRON HCL 4MG/2ML INJ IV PRN (13:17)
[2021-08-09] MEDS: MORPHINE SULFATE 2 MG/ML CPJ (NOT FOR IM USE) IV PRN ×3 (13:18→23:37)
[2021-08-09] MEDS: SODIUM CHLORIDE 0.9% 1,000 ML IV SCH (13:18)
[2021-08-09] MEDS ORDERED: POTASSIUM CHLORIDE 20MEQ/PACKET PO NR (14:30)
[2021-08-09 16:00] VITALS: BP 171/117
[2021-08-09 16:50] VITALS: BP 181/80
[2021-08-09] MEDS ORDERED: *PATIENT'S OWN MEDICATION STORAGE XX SCH (17:00)
[2021-08-09] MEDS: GABAPENTIN 300MG CAPSULE PO SCH (17:32)
[2021-08-09] MEDS: DICYCLOMINE HCL 20MG TABLET PO SCH ×2 (17:32→21:23)
[2021-08-09 20:00] VITALS: BP 149/90
[2021-08-09] MEDS: LOSARTAN POTASSIUM 50 MG TABLET PO SCH (21:23)
[2021-08-09] MEDS: ALPRAZOLAM 0.25 MG TABLET PO SCH (21:24)
[2021-08-10] VITALS: BP 126/73
[2021-08-10] MEDS: ZOLPIDEM TARTRATE 5MG TABLET PO PRN ×2 (00:49→23:17)
[2021-08-10 04:00] VITALS: BP 131/80
[2021-08-10] MEDS: MORPHINE SULFATE 2 MG/ML CPJ (NOT FOR IM USE) IV PRN ×4 (04:38→20:21)
[2021-08-10 06:39] LABS: BASOPHILS % 0.6 % (0.0-2.0); EOSINOPHILS % 2.4 % (0.0-5.0); HEMATOCRIT. 33.7 % (36.0-48.0); HEMOGLOBIN. 11.7 g/dL (12.0-16.0); LYMPHOCYTES % 47.4 % (20.0-50.0); MEAN CORPUSCULAR HEMOGLOBIN 33.9 pg (28.0-32.0); MEAN PLATELET VOLUME 8.2 fl (7.4-10.4); MONOCYTES % 12.5 % (2.0-8.0); NEUTROPHILS % 37.1 % (40.0-76.0); PLATELET 152 x1000/uL (130-400); RED BLOOD CELL COUNT 3.44 mill/uL (4.2-5.4); RED CELL DISTRIBUTION WIDTH 14.9 % (11.6-14.6)
[2021-08-10 07:24] LABS: CHLORIDE 111 mEq/L (98-107)
[2021-08-10 07:36] LABS: LDL CHOLESTEROL 36 mg/dL (5-100)
[2021-08-10 07:47] LABS: HDL CHOLESTEROL 139 mg/dL (40-59)
[2021-08-10 08:00] VITALS: BP 149/101
[2021-08-10] MEDS: DICYCLOMINE HCL 20MG TABLET PO SCH ×4 (08:20→20:20)
[2021-08-10] MEDS: LOSARTAN POTASSIUM 50 MG TABLET PO SCH ×2 (08:20→20:21)
[2021-08-10] MEDS: ALPRAZOLAM 0.25 MG TABLET PO SCH ×2 (08:20→15:57)
[2021-08-10] MEDS: GABAPENTIN 300MG CAPSULE PO SCH (08:20)
[2021-08-10] MEDS: DIPHENHYDRAMINE 50MG/ML VIAL IV PRN (11:33)
[2021-08-10 12:00] VITALS: BP 138/89
[2021-08-10] MEDS ORDERED: ASCO-339 MT (12:19)
[2021-08-10] MEDS ORDERED: PANT40TA51 PO (12:19)
[2021-08-10] MEDS ORDERED: ANUHCC TP (12:19)
[2021-08-10] MEDS ORDERED: AMLO10TA4 MT (12:19)
[2021-08-10] MEDS ORDERED: FLUC40SU MT (12:19)
[2021-08-10] MEDS ORDERED: ACET650S27 RC (12:19)
[2021-08-10] MEDS ORDERED: ESCI20TA MT (12:19)
[2021-08-10] MEDS ORDERED: NYSTATIN (12:19)
[2021-08-10] MEDS ORDERED: ALBUTEROL (12:19)
[2021-08-10] MEDS ORDERED: MIRT-89 MT (12:19)
[2021-08-10] MEDS ORDERED: CHOL400D7 PO (12:19)
[2021-08-10] MEDS ORDERED: BUDE6.9H INH (12:19)
[2021-08-10] MEDS ORDERED: LIPA1CAP18 MT (12:19)
[2021-08-10] MEDS ORDERED: PRED10TA PO (12:19)
[2021-08-10] MEDS: SODIUM CHLORIDE 0.9% 1,000 ML IV SCH (15:56)
[2021-08-10 16:00] VITALS: BP 133/78
[2021-08-11] MEDS: MORPHINE SULFATE 2 MG/ML CPJ (NOT FOR IM USE) IV PRN ×2 (03:25→09:05)
[2021-08-11 06:25] LABS: BASOPHILS % 0.5 % (0.0-2.0); EOSINOPHILS % 2.9 % (0.0-5.0); HEMOGLOBIN. 12.8 g/dL (12.0-16.0); LYMPHOCYTES % 55.3 % (20.0-50.0); MEAN CORPUSCULAR HEMOGLOBIN 33.6 pg (28.0-32.0); MEAN PLATELET VOLUME 8.7 fl (7.4-10.4); MONOCYTES % 14.2 % (2.0-8.0); NEUTROPHILS % 27.1 % (40.0-76.0); PLATELET 135 x1000/uL (130-400); RED CELL DISTRIBUTION WIDTH 14.9 % (11.6-14.6)
[2021-08-11 08:00] VITALS: BP 136/56
[2021-08-11 08:47] LABS: CHLORIDE 110 mEq/L (98-107)
[2021-08-11] MEDS ORDERED: LIDOCAINE HCL 1% 20ML VIAL (Pyxis) INJ ONE (08:53)
[2021-08-11] MEDS: DICYCLOMINE HCL 20MG TABLET PO SCH ×4 (09:00→21:31)
[2021-08-11] MEDS: LOSARTAN POTASSIUM 50 MG TABLET PO SCH ×2 (09:00→21:31)
[2021-08-11] MEDS: ALPRAZOLAM 0.25 MG TABLET PO SCH ×2 (09:00→17:05)
[2021-08-11] MEDS: GABAPENTIN 300MG CAPSULE PO SCH (09:00)
[2021-08-11 12:00] VITALS: BP 138/72
[2021-08-11] MEDS: ONDANSETRON HCL 4MG/2ML INJ IV PRN ×2 (12:00→18:01)
[2021-08-11] MEDS: HYDROMORPHONE HCL/PF 2MG/ML CPJ IV PRN ×3 (12:01→23:00)
[2021-08-11] MEDS: SODIUM CHLORIDE 0.9% 1,000 ML IV SCH (12:15)
[2021-08-11] MEDS: DIPHENHYDRAMINE 50MG/ML VIAL IV PRN (13:57)
[2021-08-11] MEDS: LIPASE/PROTEASE/AMYLASE 4,200/14,200/24,600 UNITS CAP DR PO SCH (17:52)
[2021-08-11 20:00] VITALS: BP 130/73
[2021-08-11] MEDS: ZOLPIDEM TARTRATE 5MG TABLET PO PRN (23:12)
[2021-08-12] VITALS: BP 112/70
[2021-08-12] MEDS: ONDANSETRON HCL 4MG/2ML INJ IV PRN ×2 (00:53→06:59)
[2021-08-12] MEDS: DIPHENHYDRAMINE 50MG/ML VIAL IV PRN (00:53)
[2021-08-12] MEDS: HYDROMORPHONE HCL/PF 2MG/ML CPJ IV PRN ×2 (03:08→09:18)
[2021-08-12 04:00] VITALS: BP 126/75
[2021-08-12] MEDS: LIPASE/PROTEASE/AMYLASE 4,200/14,200/24,600 UNITS CAP DR PO SCH (06:58)
[2021-08-12 08:00] VITALS: BP 140/86
[2021-08-12] MEDS: DICYCLOMINE HCL 20MG TABLET PO SCH ×2 (09:17→13:14)
[2021-08-12] MEDS: LOSARTAN POTASSIUM 50 MG TABLET PO SCH (09:17)
[2021-08-12] MEDS: GABAPENTIN 300MG CAPSULE PO SCH (09:20)
[2021-08-12 11:16] LABS: HEMATOCRIT. 32.3 % (36.0-48.0); HEMOGLOBIN. 11.1 g/dL (12.0-16.0); MEAN CORPUSCULAR HEMOGLOBIN 34.3 pg (28.0-32.0); MEAN CORPUSCULAR VOLUME 100.1 fL (81.0-99.0); MEAN PLATELET VOLUME 8.7 fl (7.4-10.4); PLATELET 112 x1000/uL (130-400); RED BLOOD CELL COUNT 3.23 mill/uL (4.2-5.4); RED CELL DISTRIBUTION WIDTH 14.5 % (11.6-14.6)
[2021-08-12 11:19] LABS: CHLORIDE 110 mEq/L (98-107)
[2021-08-12 12:00] VITALS: BP 146/84
[2021-08-12] MEDS: SODIUM CHLORIDE 0.9% 1,000 ML IV SCH (12:15)
[2021-08-12] MEDS: ALPRAZOLAM 0.25 MG TABLET PO SCH (12:18)
[2021-08-12 12:37] VITALS: BP 140/86
[2021-08-12 14:25] LABS: PLATELET ESTIMATE SLIGHTLY DECREASED
[2021-08-14 09:06] LABS: SACCHAROMYCES CEREVISIAE IGM <20.0 Units (0.0-24.9)
[2021-08-14 13:11] LABS: ATYPICAL pANCA <1:20 titer (Neg:<1:20)
[2021-08-17 10:11] LABS: SACCHAROMYCES CEREVISIAE IGG <20.0 Units (0.0-24.9)
== END 2021-08-12 13:15 | disposition home or self-care (01) | DRG 392 ==
LOC: ER 05:48 → EDBEDREQ 10:08 → MICUSO 10:58 → 6EST 14:16
PROVIDERS: ADMIT Internal Medicine; ATTEND Internal Medicine
PROC: 02HV33Z Insertion of Infusion Device into Superior Vena Cava, Percutaneous Approach (ICD-10-PCS; principal; 2021-08-11)
PROC: B5181ZA Fluoroscopy of Superior Vena Cava using Low Osmolar Contrast, Guidance (ICD-10-PCS; 2021-08-11)
PROC: B548ZZA Ultrasonography of Superior Vena Cava, Guidance (ICD-10-PCS; 2021-08-11)
DX: K58.9 Irritable bowel syndrome, unspecified (principal); K57.90 Diverticulosis of intestine, part unspecified, without perforation or abscess without bleeding; F10.21 Alcohol dependence, in remission; I10 Essential (primary) hypertension; K76.0 Fatty (change of) liver, not elsewhere classified; F32.9 Major depressive disorder, single episode, unspecified; K82.8 Other specified diseases of gallbladder; Z20.822 Contact with and (suspected) exposure to COVID-19; J44.9 Chronic obstructive pulmonary disease, unspecified; Z79.51 Long term (current) use of inhaled steroids; Z88.0 Allergy status to penicillin; Z88.6 Allergy status to analgesic agent; Z88.8 Allergy status to other drugs, medicaments and biological substances; Z79.899 Other long term (current) drug therapy; Z98.1 Arthrodesis status; Z87.891 Personal history of nicotine dependence
CPT/HCPCS: 36415; 36573; 74177; 76700; 80048; 80053; 80061; 80076; 81003; 84443; 85025; 86256; 86671; 87426; 93970; 99285; C1725; J1170; J1200; J2270; J2405; J3490; J7030; J7040

== ENCOUNTER 2021-10-24 07:38 | Inpatient (IN) | payer MEDICARE, MEDICAID ==
[~2021-10-24] VITALS: Ht 172.7 cm; Wt 59.4 kg
[~2021-10-24 07:38] MED LIST changes: +ACET650S27 RC; +ALBUTEROL; +AMLO10TA4 MT; +ANUHCC TP; +ASCO-339 MT; +BUDE6.9H INH; +CHOL400D7 PO; +ESCI20TA MT; +FLUC40SU MT; +LIPA1CAP18 MT; +MIRT-89 MT; +NYSTATIN; +PANT40TA51 PO; +PRED10TA PO
[2021-10-24] MEDS ORDERED: ONDANSETRON 4MG ODT PO ONE (08:15)
[2021-10-24 09:09] LABS: CLARITY URINE CLEAR (CLEAR); COLOR URINE YELLOW (YELLOW); KETONES URINE NEGATIVE (NEGATIVE); LEUKOCYTE ESTERASE URINE NEGATIVE (NEGATIVE); NITRITE URINE NEGATIVE (NEGATIVE); OCCULT BLOOD URINE NEGATIVE (NEGATIVE); PH URINE 7.5 (4.5-8.0); PROTEIN URINE NEGATIVE (NEGATIVE); SPECIFIC GRAVITY URINE 1.013 (1.005-1.030); UROBILINOGEN URINE 0.2 E.U./dL (0.2-1.0)
[2021-10-24] MEDS ORDERED: MORPHINE SULFATE 4 MG/ML CPJ (NOT FOR IM USE) IV ONE (09:15)
[2021-10-24] MEDS ORDERED: SODIUM CHLORIDE 0.9% 1,000 ML IV ONE (09:15)
[2021-10-24 09:38] LABS: BASOPHILS % 0.7 % (0.0-2.0); EOSINOPHILS % 0.8 % (0.0-5.0); LYMPHOCYTES % 24.3 % (20.0-50.0); MEAN CORPUSCULAR HEMOGLOBIN 35.6 pg (28.0-32.0); MEAN CORPUSCULAR VOLUME 109.5 fL (81.0-99.0); MEAN PLATELET VOLUME 8.8 fl (7.4-10.4); MONOCYTES % 13.8 % (2.0-8.0); NEUTROPHILS % 60.4 % (40.0-76.0); PLATELET 169 x1000/uL (130-400); RED BLOOD CELL COUNT 3.38 mill/uL (4.2-5.4); RED CELL DISTRIBUTION WIDTH 16.4 % (11.6-14.6)
[2021-10-24 09:43] LABS: CHLORIDE 109 mEq/L (98-107)
[2021-10-24] MEDS ORDERED: DIPHENHYDRAMINE 50MG/ML VIAL IV ONE (09:45)
[2021-10-24 09:48] LABS: PHOSPHORUS 5.4 mg/dL (2.5-4.9)
[2021-10-24] MEDS ORDERED: MAGNESIUM 2 G PREMIX 50 ML IV ONE (11:30)
[2021-10-24] MEDS ORDERED: IPRATROPIUM/ALBUTEROL 0.5-3(2.5)MG/3ML NEB HHN PRN (13:00)
[2021-10-24] MEDS ORDERED: NALOXONE HCL 0.4MG/ML VIAL IV PRN (13:15)
[2021-10-24 14:45] LABS: *BARBITURATES SCREEN URINE PRESUMTIVE POSITIVE (NEGATIVE); *BENZODIAZEPINES SCREEN URINE NEGATIVE (NEGATIVE); *COCAINE SCREEN URINE NEGATIVE (NEGATIVE); METHADONE URINE SCREEN NEGATIVE (NEGATIVE); OPIATES URINE SCREEN PRESUMTIVE POSITIVE (NEGATIVE)
[2021-10-24 14:46] LABS: *AMPHETAMINES SCREEN URINE NEGATIVE (NEGATIVE); CANNABINOID URINE SCREEN PRESUMTIVE POSITIVE (NEGATIVE); PHENCYCLIDINE URINE SCREEN NEGATIVE (NEGATIVE)
[2021-10-24] MEDS: DIPHENHYDRAMINE 50MG/ML VIAL IV PRN ×2 (16:37→22:40)
[2021-10-24] MEDS: MORPHINE SULFATE 2 MG/ML CPJ (NOT FOR IM USE) IV PRN ×2 (16:38→20:41)
[2021-10-24] MEDS: ONDANSETRON HCL 4MG/2ML INJ IV PRN (16:51)
[2021-10-24] MEDS ORDERED: LOPHC2 MT ×2 (17:27→17:28)
[2021-10-24 20:00] VITALS: BP 148/81
[2021-10-24 20:09] VITALS: BP 113/56
[2021-10-25] VITALS: BP 140/83
[2021-10-25] MEDS: MORPHINE SULFATE 2 MG/ML CPJ (NOT FOR IM USE) IV PRN ×5 (00:59→21:45)
[2021-10-25 04:00] VITALS: BP 140/83
[2021-10-25] MEDS: ONDANSETRON HCL 4MG/2ML INJ IV PRN ×2 (05:29→14:47)
[2021-10-25 08:00] VITALS: BP 155/94
[2021-10-25] MEDS: PANTOPRAZOLE SODIUM 40 MG/VIAL IV SCH (09:46)
[2021-10-25 12:00] VITALS: BP 154/92
[2021-10-25 12:58] LABS: HEMATOCRIT. 36.2 % (36.0-48.0); HEMOGLOBIN. 11.8 g/dL (12.0-16.0); MEAN CORPUSCULAR HEMOGLOBIN 34.4 pg (28.0-32.0); MEAN CORPUSCULAR VOLUME 105.4 fL (81.0-99.0); MEAN PLATELET VOLUME 9.9 fl (7.4-10.4); PLATELET 137 x1000/uL (130-400); RED BLOOD CELL COUNT 3.44 mill/uL (4.2-5.4); RED CELL DISTRIBUTION WIDTH 15.7 % (11.6-14.6)
[2021-10-25 13:09] LABS: CHLORIDE 110 mEq/L (98-107)
[2021-10-25] MEDS: DIPHENHYDRAMINE 50MG/ML VIAL IV PRN (13:09)
[2021-10-25 14:20] LABS: PLATELET ESTIMATE NORMAL
[2021-10-25] MEDS ORDERED: IOHEXOL-300 100 ML BOTTLE ONE (14:30)
[2021-10-25 16:00] VITALS: BP 150/92
[2021-10-25 20:00] VITALS: BP 159/96
[2021-10-25] MEDS: CLONIDINE 0.1MG TABLET PO PRN (21:45)
[2021-10-25] MEDS ORDERED: PIPERACILLIN/TAZOBACTAM 3.375 G in DEXTROSE 5% WATER 50 ML IV SCH (22:00)
[2021-10-26] VITALS: BP 135/89
[2021-10-26] MEDS: LEVOFLOXACIN 500MG PREMIX 100 ML IV SCH (00:27)
[2021-10-26] MEDS: DIPHENHYDRAMINE 50MG/ML VIAL IV PRN ×3 (00:27→13:06)
[2021-10-26] MEDS: ONDANSETRON HCL 4MG/2ML INJ IV PRN ×3 (02:52→19:12)
[2021-10-26] MEDS: MORPHINE SULFATE 2 MG/ML CPJ (NOT FOR IM USE) IV PRN ×4 (02:53→21:53)
[2021-10-26 04:00] VITALS: BP 153/89
[2021-10-26 07:22] LABS: HEMATOCRIT. 34.4 % (36.0-48.0); HEMOGLOBIN. 11.6 g/dL (12.0-16.0); MEAN CORPUSCULAR HEMOGLOBIN 35.1 pg (28.0-32.0); MEAN CORPUSCULAR VOLUME 104.2 fL (81.0-99.0); MEAN PLATELET VOLUME 9.3 fl (7.4-10.4); PLATELET 167 x1000/uL (130-400); RED CELL DISTRIBUTION WIDTH 14.9 % (11.6-14.6)
[2021-10-26 07:56] LABS: CHLORIDE 104 mEq/L (98-107)
[2021-10-26 08:00] VITALS: BP 126/84
[2021-10-26] MEDS: PANTOPRAZOLE SODIUM 40 MG/VIAL IV SCH (08:49)
[2021-10-26 12:00] VITALS: BP 144/93
[2021-10-26 16:00] VITALS: BP 148/98
[2021-10-26 20:00] VITALS: BP 126/85
[2021-10-26 21:27] LABS: PLATELET ESTIMATE NORMAL
[2021-10-27] VITALS: BP 144/80
[2021-10-27] MEDS: LEVOFLOXACIN 500MG PREMIX 100 ML IV SCH ×2 (00:51→22:10)
[2021-10-27] MEDS: MORPHINE SULFATE 2 MG/ML CPJ (NOT FOR IM USE) IV PRN ×4 (02:29→20:03)
[2021-10-27 04:00] VITALS: BP 165/90
[2021-10-27 07:30] LABS: HEMATOCRIT. 36.4 % (36.0-48.0); HEMOGLOBIN. 12.2 g/dL (12.0-16.0); MEAN CORPUSCULAR HEMOGLOBIN 35.3 pg (28.0-32.0); MEAN CORPUSCULAR VOLUME 105.5 fL (81.0-99.0); MEAN PLATELET VOLUME 8.9 fl (7.4-10.4); PLATELET 151 x1000/uL (130-400); RED BLOOD CELL COUNT 3.46 mill/uL (4.2-5.4); RED CELL DISTRIBUTION WIDTH 15.2 % (11.6-14.6)
[2021-10-27 07:47] LABS: CHLORIDE 105 mEq/L (98-107)
[2021-10-27 08:00] VITALS: BP 131/96
[2021-10-27] MEDS: PANTOPRAZOLE SODIUM 40 MG/VIAL IV SCH (09:17)
[2021-10-27] MEDS: DIPHENHYDRAMINE 50MG/ML VIAL IV PRN ×3 (09:17→20:03)
[2021-10-27] MEDS ORDERED: HYDROCODONE/ACETAMINOPHEN 10/325MG TABLET PO PRN (11:45)
[2021-10-27] MEDS ORDERED: HYDROCODONE/ACETAMINOPHEN 5/325MG TABLET PO PRN (11:45)
[2021-10-27 12:00] VITALS: BP 169/103
[2021-10-27] MEDS ORDERED: ALPRAZOLAM 0.25 MG TABLET PO PRN (12:00)
[2021-10-27] MEDS ORDERED: NON FORMULARY PATIENT HOME MED XX SCH (12:00)
[2021-10-27] MEDS: LOSARTAN POTASSIUM 50 MG TABLET PO SCH (12:18)
[2021-10-27] MEDS: AMLODIPINE 10MG TABLET PO SCH (12:19)
[2021-10-27 16:00] VITALS: BP 132/95
[2021-10-27] MEDS: BACLOFEN 10MG TABLET PO SCH ×2 (16:03→22:10)
[2021-10-27] MEDS: DEXT 5%/0.9% NACL 1,000 ML IV SCH (17:44)
[2021-10-27 20:00] VITALS: BP 136/94
[2021-10-27] MEDS: ONDANSETRON HCL 4MG/2ML INJ IV PRN (20:03)
[2021-10-27 20:27] LABS: PLATELET ESTIMATE NORMAL
[2021-10-27] MEDS ORDERED: BACLOFEN 10MG TABLET PO SCH (22:00)
[2021-10-28] VITALS: BP 132/86
[2021-10-28] MEDS: MORPHINE SULFATE 2 MG/ML CPJ (NOT FOR IM USE) IV PRN ×5 (00:52→22:32)
[2021-10-28] MEDS: DIPHENHYDRAMINE 50MG/ML VIAL IV PRN ×2 (00:52→06:00)
[2021-10-28] MEDS: ONDANSETRON HCL 4MG/2ML INJ IV PRN ×2 (03:12→18:15)
[2021-10-28] MEDS: CLONIDINE 0.1MG TABLET PO PRN (03:46)
[2021-10-28 04:00] VITALS: BP 154/104
[2021-10-28] MEDS: BACLOFEN 10MG TABLET PO SCH ×3 (06:00→22:10)
[2021-10-28 08:00] VITALS: BP 129/85
[2021-10-28 09:06] LABS: SACCHAROMYCES CEREVISIAE IGM <20.0 Units (0.0-24.9)
[2021-10-28] MEDS: PANTOPRAZOLE SODIUM 40 MG/VIAL IV SCH (09:36)
[2021-10-28] MEDS: AMLODIPINE 10MG TABLET PO SCH (09:36)
[2021-10-28] MEDS: CITALOPRAM HYDROBROMIDE 10MG TABLET PO SCH (09:37)
[2021-10-28] MEDS: LOSARTAN POTASSIUM 50 MG TABLET PO SCH (09:37)
[2021-10-28] MEDS ORDERED: PHENOL/SODIUM PHENOLATE 1.4% SRPAY 177ML MM PRN (10:00)
[2021-10-28] MEDS: DEXT 5%/0.9% NACL 1,000 ML IV SCH (10:18)
[2021-10-28 12:00] VITALS: BP 129/87
[2021-10-28] MEDS ORDERED: MAGNESIUM 2 G PREMIX 50 ML IV NR (13:00)
[2021-10-28 13:07] LABS: ATYPICAL pANCA <1:20 titer (Neg:<1:20)
[2021-10-28 16:00] VITALS: BP 116/83
[2021-10-28 20:00] VITALS: BP 117/70
[2021-10-28] MEDS: LEVOFLOXACIN 500MG PREMIX 100 ML IV SCH (22:10)
[2021-10-29] VITALS: BP 123/83
[2021-10-29] MEDS: DEXT 5%/0.9% NACL 1,000 ML IV SCH ×2 (01:55→19:09)
[2021-10-29 04:00] VITALS: BP 129/70
[2021-10-29] MEDS: BACLOFEN 10MG TABLET PO SCH ×3 (06:46→21:37)
[2021-10-29 08:00] VITALS: BP 123/86
[2021-10-29 08:39] LABS: CHLORIDE 110 mEq/L (98-107)
[2021-10-29] MEDS: PANTOPRAZOLE SODIUM 40 MG/VIAL IV SCH (08:58)
[2021-10-29] MEDS: CITALOPRAM HYDROBROMIDE 10MG TABLET PO SCH (08:58)
[2021-10-29] MEDS: AMLODIPINE 10MG TABLET PO SCH (08:58)
[2021-10-29] MEDS: LOSARTAN POTASSIUM 50 MG TABLET PO SCH (09:00)
[2021-10-29 09:08] LABS: SACCHAROMYCES CEREVISIAE IGG 22.8 Units (0.0-24.9)
[2021-10-29 12:00] VITALS: BP 137/85
[2021-10-29 16:00] VITALS: BP 128/76
[2021-10-29] MEDS ORDERED: MORPHINE SULFATE 2 MG/ML CPJ (NOT FOR IM USE) IV PRN (16:30)
[2021-10-29] MEDS: DIPHENHYDRAMINE 50MG/ML VIAL IV PRN (17:45)
[2021-10-29 20:00] VITALS: BP 117/83
[2021-10-29] MEDS: LEVOFLOXACIN 500MG PREMIX 100 ML IV SCH (21:37)
[2021-10-29] MEDS: OXYCODONE HCL 5MG TABLET PO PRN (23:11)
[2021-10-29] MEDS ORDERED: MAGNESIUM/ALUMINUM HYDROXIDE/SIMETHICONE 30ML UDC PO PRN (23:45)
[2021-10-30] VITALS: BP 139/70
[2021-10-30 04:00] VITALS: BP 121/78
[2021-10-30] MEDS: OXYCODONE HCL 5MG TABLET PO PRN ×3 (04:13→21:12)
[2021-10-30] MEDS: DIPHENHYDRAMINE 50MG/ML VIAL IV PRN ×3 (04:58→23:11)
[2021-10-30] MEDS: BACLOFEN 10MG TABLET PO SCH ×3 (05:28→23:11)
[2021-10-30 08:00] VITALS: BP 132/80
[2021-10-30] MEDS: PANTOPRAZOLE SODIUM 40 MG/VIAL IV SCH (08:21)
[2021-10-30] MEDS: LOSARTAN POTASSIUM 50 MG TABLET PO SCH (08:22)
[2021-10-30] MEDS: AMLODIPINE 10MG TABLET PO SCH (08:22)
[2021-10-30] MEDS: CITALOPRAM HYDROBROMIDE 10MG TABLET PO SCH (08:22)
[2021-10-30] MEDS ORDERED: LIDOCAINE HCL 1% 10 MG/ML 10ML VIAL ONE (08:55)
[2021-10-30 12:00] VITALS: BP 128/80
[2021-10-30] MEDS: DEXT 5%/0.9% NACL 1,000 ML IV SCH ×2 (12:31→20:15)
[2021-10-30 20:00] VITALS: BP 130/78
[2021-10-30] MEDS: LEVOFLOXACIN 500MG PREMIX 100 ML IV SCH (21:14)
[2021-10-31] VITALS: BP 143/85
[2021-10-31] MEDS: OXYCODONE HCL 5MG TABLET PO PRN ×6 (00:54→23:44)
[2021-10-31 04:00] VITALS: BP 134/86
[2021-10-31 06:26] LABS: HEMOGLOBIN. 11.5 g/dL (12.0-16.0); MEAN CORPUSCULAR HEMOGLOBIN 35.1 pg (28.0-32.0); MEAN CORPUSCULAR VOLUME 103.4 fL (81.0-99.0); MEAN PLATELET VOLUME 8.9 fl (7.4-10.4); PLATELET 134 x1000/uL (130-400); RED BLOOD CELL COUNT 3.29 mill/uL (4.2-5.4); RED CELL DISTRIBUTION WIDTH 14.2 % (11.6-14.6)
[2021-10-31 06:29] LABS: CHLORIDE 109 mEq/L (98-107)
[2021-10-31] MEDS: BACLOFEN 10MG TABLET PO SCH ×3 (07:03→22:04)
[2021-10-31] MEDS: DIPHENHYDRAMINE 50MG/ML VIAL IV PRN ×2 (07:04→20:35)
[2021-10-31 08:00] VITALS: BP 143/81
[2021-10-31] MEDS: PANTOPRAZOLE SODIUM 40 MG/VIAL IV SCH (08:49)
[2021-10-31] MEDS: AMLODIPINE 10MG TABLET PO SCH (08:50)
[2021-10-31] MEDS: CITALOPRAM HYDROBROMIDE 10MG TABLET PO SCH (08:50)
[2021-10-31] MEDS: LOSARTAN POTASSIUM 50 MG TABLET PO SCH (08:52)
[2021-10-31 12:00] VITALS: BP 126/86
[2021-10-31 16:00] VITALS: BP 120/73
[2021-10-31 16:55] LABS: PLATELET ESTIMATE NORMAL
[2021-10-31 20:00] VITALS: BP 125/73
[2021-11-01] VITALS: BP 123/87
[2021-11-01 04:00] VITALS: BP 144/94
[2021-11-01] MEDS: OXYCODONE HCL 5MG TABLET PO PRN ×2 (04:05→09:13)
[2021-11-01] MEDS: DIPHENHYDRAMINE 50MG/ML VIAL IV PRN (04:05)
[2021-11-01 08:00] VITALS: BP 143/86
[2021-11-01] MEDS: CITALOPRAM HYDROBROMIDE 10MG TABLET PO SCH (09:12)
[2021-11-01] MEDS: PANTOPRAZOLE SODIUM 40 MG/VIAL IV SCH (09:12)
[2021-11-01] MEDS: LOSARTAN POTASSIUM 50 MG TABLET PO SCH (09:12)
[2021-11-01] MEDS: AMLODIPINE 10MG TABLET PO SCH (09:13)
[2021-11-01] MEDS ORDERED: ONDA4TAB11 PO ×3 (10:38→11:51)
[2021-11-01] MEDS ORDERED: HYDR-4001 MT ×3 (10:38→11:51)
[2021-11-01 10:57] VITALS: BP 143/86
== END 2021-11-01 11:46 | disposition home health service (06) | DRG 392 ==
LOC: ER 09:25 → 6EST 11:19 → ENRESERV 14:59
PROVIDERS: ADMIT Internal Medicine; ATTEND Internal Medicine
PROC: 02HV33Z Insertion of Infusion Device into Superior Vena Cava, Percutaneous Approach (ICD-10-PCS; principal; 2021-10-30)
PROC: B548ZZA Ultrasonography of Superior Vena Cava, Guidance (ICD-10-PCS; 2021-10-30)
PROC: B5181ZA Fluoroscopy of Superior Vena Cava using Low Osmolar Contrast, Guidance (ICD-10-PCS; 2021-10-30)
DX: K58.0 Irritable bowel syndrome with diarrhea (principal); E44.0 Moderate protein-calorie malnutrition; Z68.1 Body mass index [BMI] 19.9 or less, adult; E88.09 Other disorders of plasma-protein metabolism, not elsewhere classified; F32.A Depression, unspecified; E78.5 Hyperlipidemia, unspecified; I10 Essential (primary) hypertension; R11.2 Nausea with vomiting, unspecified; J44.9 Chronic obstructive pulmonary disease, unspecified; Z60.2 Problems related to living alone; Z20.822 Contact with and (suspected) exposure to COVID-19; F11.10 Opioid abuse, uncomplicated; F12.10 Cannabis abuse, uncomplicated; F13.10 Sedative, hypnotic or anxiolytic abuse, uncomplicated; K76.0 Fatty (change of) liver, not elsewhere classified; Z79.51 Long term (current) use of inhaled steroids; Z87.891 Personal history of nicotine dependence; Z98.1 Arthrodesis status; Z88.6 Allergy status to analgesic agent; Z88.0 Allergy status to penicillin; Z88.8 Allergy status to other drugs, medicaments and biological substances; Z79.01 Long term (current) use of anticoagulants; Z79.899 Other long term (current) drug therapy; Z98.891 History of uterine scar from previous surgery; M51.16 Intervertebral disc disorders with radiculopathy, lumbar region; M48.061 Spinal stenosis, lumbar region without neurogenic claudication
CPT/HCPCS: 36415; 36573; 74018; 74177; 76700; 80048; 80053; 80076; 80305; 81003; 83735; 84100; 85025; 86256; 86671; 87426; 93005; 93970; 99285; C1725; C1893; C9113; J1200; J1956; J2270; J2405; J3475; J3490; J7030; J7042; Q0162; Q9967